=== PATIENT | male | born 1970 | race Caucasian/White ===

== ENCOUNTER → 2020-05-28 | Outpatient (CLI) | payer BC ==
--- NOTE | 2020-05-28 09:46 | RAD ---
INDICATION: Reason: RIGHT LATERAL ANKLE LUMP / Spl. Instructions: / History: COMPARISON: None. FINDINGS: Focused ultrasound at right lateral ankle at region of lump Subcutaneous fat is seen without drainable fluid collection or mass IMPRESSION: * No drainable fluid collection or mass at right lateral ankle. Electronically signed by: Robin Hernández MD (05/28/2020 9:44 AM) [id number]
--- NOTE | 2020-05-28 09:48 | RAD ---
Study: CR XR LUMBAR SPINE 2-3V Indication: Low back pain. Comparison: None. Findings: Transitional lumbosacral anatomy. For the purposes of this report, the last well-formed disc space is designated L5-S1 with L5 partially sacralized with a pseudoarticulation on the right. No advanced facet degeneration. Mild disc space narrowing at the L5-S1 level though this is not defin itively on account of degenerative disc disease and could be within normal limits for this patient gi theron transitional anatomy. Mild disc space narrowing lateralized to the left at L5-S1 best appreciated on the AP view. Maintained vertebral body height. No significant listhesis. The partially visualized pelvic osseous structures are unremarkable. Impression: 1. Transitional lumbosacral anatomy as discussed above. 2. Mild disc space narrowing lateralized to the left at L5-S1. No advanced facet degeneration. Electronically signed by: AMBER CARMICHAEL MD (05/28/2020 9:46 AM) [id number]
== END ==
LOC: US 09:12
PROVIDERS: ATTEND Nurse Practitioner Adult Health
DX: S39.92XA Unspecified injury of lower back, initial encounter (principal); M54.16 Radiculopathy, lumbar region; R22.2 Localized swelling, mass and lump, trunk; M62.838 Other muscle spasm; M48.07 Spinal stenosis, lumbosacral region; X58.XXXA Exposure to other specified factors, initial encounter; Y93.89 Activity, other specified; Y92.89 Other specified places as the place of occurrence of the external cause; Y99.8 Other external cause status
CPT/HCPCS: 72100; 76881